=== PATIENT | male | born 1945 | race Caucasian/White ===

== ENCOUNTER 2023-10-31 12:25 | Outpatient (CLI) | payer MEDICARE, OTHER ==
[2023-10-31 15:20] LABS: #Basophils 0.05 10x3/uL (0.0-0.2); #Neutrophils 6.15 10x3/uL (1.5-8.4); %Basophils 0.6 % (0.0-2.0); %Lymphocytes 20.7 % (18.0-47.0); %Neutrophils 68.3 % (40.0-75.0); Hematocrit 45.5 % (38.8-50.0); Hemoglobin 15.7 g/dL (13.5-17.5); Mean Corpuscular HGB CONC 34.5 g/dL (32.0-36.0); Mean Corpuscular Hemoglobin 32.6 pg (27.0-33.0); Mean Corpuscular Volume 94.6 fL (81.2-95.1); Mean Platelet Volume 10.9 fL (7.4-10.4); Platelet Count 563 10x3/uL (150-450); Red Blood Cell (RBC) Count 4.81 10x6/uL (4.32-5.72)
[2023-10-31 15:27] LABS: Anion Gap 15 mmol/L (10-20); BUN (Urea Nitrogen) 18 mg/dL (8.4-25.7); Calc. Creatinine Clearance 0 mL/min (70-130); Calcium 9.7 mg/dL (7.8-10.44); Carbon Dioxide 25 mmol/L (23-31); Chloride 104 mmol/L (98-107); Estimated GFR 59; Glucose 95 mg/dL (83-110); Potassium 5.5 mmol/L (3.5-5.1); Sodium 138 mmol/L (136-145)
== END 2023-10-31 12:26 | disposition home or self-care (01) ==
LOC: CSHLAB 12:25
PROVIDERS: ATTEND Specialist
DX: Z01.818 Encounter for other preprocedural examination (principal); K40.90 Unilateral inguinal hernia, without obstruction or gangrene, not specified as recurrent; J44.9 Chronic obstructive pulmonary disease, unspecified
CPT/HCPCS: 71046; 80048; 85025; 93005; 93010

== ENCOUNTER 2023-11-04 11:05 | Day surgery (SDC) | payer MEDICARE, OTHER ==
[2023-10-31 13:39] VITALS: BMI 21.2
[2023-11-04] MEDS ORDERED: Ketorolac Tromethamine 30 MG (1 mL) VIAL ONE (11:58)
[2023-11-04] MEDS ORDERED: Acetaminophen 500 MG TAB ONE (11:59)
[2023-11-04] MEDS ORDERED: EPINEPHrine 1 MG/ML VIAL ONE (13:47)
[2023-11-04] MEDS ORDERED: Bupivacaine 0.25% HCL 30 ML VIAL ONE (13:48)
[2023-11-04] MEDS ORDERED: CEFAZOLIN 2 GM VIAL ONE (13:48)
[2023-11-04] MEDS ORDERED: PROPOFOL 20 ML ONE (13:56)
[2023-11-04] MEDS ORDERED: fentaNYL 50 mcg/mL 1 mL Vial ONE ×3 (13:56→15:35)
[2023-11-04] MEDS ORDERED: Ondansetron PF 4 MG/2 ML Vial ONE (13:57)
[2023-11-04] MEDS ORDERED: Rocuronium Bromide 10 MG/ML (10ML VIAL) ONE (13:57)
[2023-11-04] MEDS ORDERED: Lidocaine 4% PF 5 ML AMP ONE (13:57)
[2023-11-04] MEDS ORDERED: Lidocaine 2% PF 5 ML VIAL ONE (13:57)
[2023-11-04] MEDS ORDERED: Dexamethasone 4 mg/ml Vial ONE (13:57)
[2023-11-04] MEDS ORDERED: PHENYLEPHRINE-NS 100 MCG/ML 10 ML SYRINGE ONE (14:11)
[2023-11-04] MEDS ORDERED: SUGAMMADEX SODIUM 200 MG/2 ML VIAL ONE (14:47)
[2023-11-04] MEDS ORDERED: Famotidine/PF 20 mg/2ml Vial ONE (15:56)
== END 2023-11-04 16:50 | disposition home or self-care (01) ==
LOC: CSHSDC 11:05
PROVIDERS: ATTEND Specialist
PROC: 0YU64JZ Supplement Left Inguinal Region with Synthetic Substitute, Percutaneous Endoscopic Approach (ICD-10-PCS; principal; 2023-11-04)
DX: K40.90 Unilateral inguinal hernia, without obstruction or gangrene, not specified as recurrent (principal); E78.5 Hyperlipidemia, unspecified; J44.9 Chronic obstructive pulmonary disease, unspecified; Z87.891 Personal history of nicotine dependence; K21.9 Gastro-esophageal reflux disease without esophagitis; I25.10 Atherosclerotic heart disease of native coronary artery without angina pectoris; C61 Malignant neoplasm of prostate; I12.9 Hypertensive chronic kidney disease with stage 1 through stage 4 chronic kidney disease, or unspecified chronic kidney disease; N18.31 Chronic kidney disease, stage 3a; M41.9 Scoliosis, unspecified; N40.0 Benign prostatic hyperplasia without lower urinary tract symptoms; H26.9 Unspecified cataract; Z98.890 Other specified postprocedural states; Z98.41 Cataract extraction status, right eye; Z98.42 Cataract extraction status, left eye; Z79.51 Long term (current) use of inhaled steroids; Z79.899 Other long term (current) drug therapy; Z88.8 Allergy status to other drugs, medicaments and biological substances; Z86.73 Personal history of transient ischemic attack (TIA), and cerebral infarction without residual deficits
CPT/HCPCS: 49650; C1781; J0171; J0665; J1100; J1885; J2001; J2405; J2704; J3010; S0028